=== PATIENT | male | born 1980 | race African-American/Black ===

== ENCOUNTER → 2020-10-29 | Outpatient (CLI) | payer BC ==
--- NOTE | 2020-10-29 14:41 | RAD ---
EXAM: KNEE STANDING BILAT AP, KNEE RIGHT 2V. HISTORY: Right knee pain. COMPARISON: None. 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 There is a small to moderate joint effusion. No fractures are identified. Joint spaces and alignment are maintained. On the left, an osteochondroma along the medial aspect of the tibial metaphysis measures 2.2 cm and appears benign. The lateral compartmental joint space is mostly effaced. There is moderate osteophytosis medially and laterally. There is mild exaggeration of the normal valgus and lateral subluxation of the tibia. IMPRESSION: 1. Small to moderate joint effusion on the right. 2. Moderate to severe lateral compartment predominant osteoarthritis on the left. 3. 2.2 cm benign-appearing osteochondroma along the medial aspect of the left proximal tibial metaphysis. Electronically signed by: Deisi Koroma MD (10/29/2020 2:38 PM) [facility]
== END ==
LOC: DXRAD 13:48
PROVIDERS: ATTEND Physician Assistant
DX: M17.12 Unilateral primary osteoarthritis, left knee (principal); M25.461 Effusion, right knee; D16.22 Benign neoplasm of long bones of left lower limb; M25.761 Osteophyte, right knee
CPT/HCPCS: 73560; 73565